=== PATIENT | male | born 1975 | race Hispanic/Latino ===

== ENCOUNTER 2018-12-07 03:09 | Emergency (ER) | payer OTHER ==
[2018-12-07] MEDS ORDERED: IPRATROPIUM/ALBUTEROL SULFATE 3 ML SOLUTION IH ONE (04:38)
== END 2018-12-07 05:57 | disposition home or self-care (01) ==
LOC: EDH 03:09
DX: F41.9 Anxiety disorder, unspecified (principal); F10.10 Alcohol abuse, uncomplicated; R06.02 Shortness of breath; F43.10 Post-traumatic stress disorder, unspecified
CPT/HCPCS: 71045; 93005; 94640

== ENCOUNTER 2019-03-26 02:06 | Emergency (ER) | payer OTHER | END 2019-03-26 02:28 | LOC: EDH 02:06 | DX: Z02.83 Encounter for blood-alcohol and blood-drug test (principal) ==